=== PATIENT | male | born 1950 | race Caucasian/White ===

== ENCOUNTER 2016-05-07 11:39 | Inpatient (IN) | payer OTHER ==
--- NOTE | ~2016-05-07 | DS ---
Discharge Summary [facility] [address] [facility] [place]. [address] NAME: REMEDIOS XAVIER JR : 52 STATUS : DIS IN PAT#: [id number] AGE: 65 ADM/REG DATE : 05/07/16 MR#: [id number] REPORT SERV DATE: 05/13/16 DICTATED BY: JOAQUIN TELLO DATE: 05/13/16 REPORT STATUS : Draft TRANSCRIBED BY: MODL DATE: 05/13/16 ADMISSION DATE: 05/07/2016 DISCHARGE DATE: 05/13/2016 DIAGNOSES ON ADMISSION: 1. End-stage renal disease, on hospice. 2. Hyperkalemia. 3. Hyponatremia. 4. Bilateral hydronephrosis with a left ureteral stent. 5. Advanced Pick's disease/severe dementia. DIAGNOSES ON DISCHARGE: 1. End-stage renal disease, on hospice. 2. Hyperkalemia and hyponatremia, resolved. 3. Bilateral hydronephrosis, status post left ureteral stent removal per Dr. Palmer. 4. Urinary tract infection, treated. 5. Advanced Pick's disease/dementia. 6. Poor prognosis. 7. The patient to go back to hospice. CONSULTANTS ON THE CASE: Urologist, Dr. Palmer. PROCEDURES DONE: Yesterday, on 05/12/2016, left ureteral stent removal. HISTORY OF PRESENT ILLNESS: For the details of admission, see H and P dictated by Dr. Castro on 05/07/2016. HOSPITAL COURSE: The patient was seen by Dr. Castro until 05/11/2016. When I started to see this patient, he had stable vital signs, but he was not able to follow commands, he was not able to answer questions appropriately because of his severe dementia, although he was alert and awake. The patient has severe end-stage kidney disease and he is not a dialysis candidate, so mechanical engineering director who saw on previous admission recommended the patient to be on hospice, and the patient was on hospice before coming to the hospital. The reason the patient came to the hospital was left ureteral stent removal per Dr. Palmer. Dr. Palmer yesterday removed the patient's stent. He said that his kidney function is still very abnormal indicating end-stage kidney disease and Dr. Palmer also confirmed that this patient has a very poor prognosis and he needs to go back to hospice. As well, he was found to have urinary tract infection which was treated with antibiotics according to sensitivity, and he needs to continue Levaquin for five more days, also, according to sensitivity. The patient needs to go to home with hospice with indwelling Melvin catheter which needs to be changed every four weeks. Dr. Palmer also reported that the patient can see him as needed. Every instruction was given to his friend/caregiver who took the patient home with hospice. Discharge medications were given; Levaquin prescription 750 mg p.o. daily for five days, and also Protonix 40 mg p.o. daily was given to the patient. The rest of the medications per Discharge Summary [address] [address] NAME: REMEDIOS XAVIER JR : 52 STATUS : DIS IN PAT#: [id number] AGE: 65 ADM/REG DATE : 05/07/16 MR#: [id number] REPORT SERV DATE: 05/13/16 DICTATED BY: JOAQUIN TELLO DATE: 05/13/16 REPORT STATUS : Draft TRANSCRIBED BY: RAGHU DATE: 05/13/16 Hospice. I spent 45 minutes on discharge. Everything was discussed with the patient's friend. This is poor prognosis. /RAGHU Joaquin Tello M.D. / [id number] CC: Ama Begum M.D.
--- NOTE | ~2016-05-07 | OP ---
Record Of Operation [facility] [address] [place]. [address] NAME: REMEDIOS XAVIER JR : 52 STATUS : ADM IN [facility]#: [id number] AGE: 65 ADM/REG DATE : 05/07/16 MR#: [id number] REPORT SERV DATE: 05/12/16 DICTATED BY: MILLER BRITTON DATE: 05/12/16 REPORT STATUS : Draft TRANSCRIBED BY: MODL DATE: 05/12/16 DATE OF PROCEDURE: 05/12/2016 PREOPERATIVE DIAGNOSIS: Hydronephrosis. POSTOPERATIVE DIAGNOSIS: Hydronephrosis. OPERATIVE PROCEDURE: Cystoscopy with left ureteral stent removal. ANESTHESIA: General inhalation. SURGEON: Dr. Britton. SPECIMENS: Stent. DRAINS: #18 coude Melvin catheter. IMMEDIATE POSTOP: Satisfactory. COMPLICATIONS: None. DESCRIPTION OF PROCEDURE: The patient was brought in the cysto suite, given inhalational anesthetic by LMA. He was placed in the lithotomy position. Perineum and genitalia were prepped and draped in a sterile fashion. Video cystourethroscopy was performed using #22 cystoscope Foroblique lens. Distal end of the left ureteral stent was identified and grasped with an endoscopic grasping forceps. It was extracted while observing on an on- table fluoroscopy. The stent was removed without difficulty. It was inspected and noted to be complete without fragments missing. At this point, a #18 coude Melvin catheter was placed in the bladder, balloon inflated, hooked to drainage, and syringe irrigated. The patient was then awakened and sent to recovery in stable condition. /RAGHU Miller Britton M.D. / [id number] CC: Lyric Heath M.D.
--- NOTE | ~2016-05-07 | HP ---
History And Physical [place] [id number] [facility] [place]. [address] NAME: REMEDIOS PATEL JR : 52 STATUS : ADM IN PAT#: [id number] AGE: 65 ADM/REG DATE : 05/07/16 MR#: [id number] REPORT SERV DATE: 05/07/16 DICTATED BY: JUANA MERINO DATE: 05/07/16 REPORT STATUS : Draft TRANSCRIBED BY: MODL DATE: 05/07/16 DATE OF ADMISSION: 05/07/2016 [facility] UROLOGIST: Dr. Palmer. HISTORY OF PRESENT ILLNESS: This is a 65-year-old male with advanced Pick's dementia, was recently transferred to hospice last month. During that admission, the patient had end- stage renal disease, advanced Pick's disease, and had a left stent placed for ureteral stones. The plan is to have it removed after three weeks. The patient has been doing well with hospice, eating a little bit every day. But for the last two days, has not been eating and feels like he is gagging. There is no note of any vomiting. No urinary or bowel changes. The patient went to same day surgery today for the scheduled removal of the stent. They did routine blood work preop and found the patient to have multiple electrolyte abnormalities. We are now called to admit the patient and hold off the stent removal until the electrolyte abnormalities are better. There is no note of any fever, chills, or sweats. No further mental status changes. There is no cough or shortness of breath. No apparent pain. REVIEW OF SYSTEMS: The rest of the 14-point review of system is negative except as above. PAST MEDICAL HISTORY: Includes the above. ALLERGIES: HE HAS NO KNOWN DRUG ALLERGIES. MEDICATIONS: Include sodium bicarbonate. FAMILY HISTORY: Alzheimer's dementia. SOCIAL HISTORY: The patient does not smoke, drink, or use recreational drugs. PHYSICAL EXAMINATION: GENERAL: The patient is an emaciated, awake, nonverbal, not in cardiopulmonary distress. VITAL SIGNS: Includes a saturation of 95% on room air, blood pressure 132/67, temperature of 99.6, pulse rate of 82, respiration of 18. NECK: He has supple neck. No JVD or carotid bruits. No lymphadenopathy. Tyrone conjunctivae. Anicteric sclerae. No pharyngeal erythema. LUNGS: Clear lungs. No rales, no wheezes. CARDIOVASCULAR: Regular rate and rhythm. No murmurs. ABDOMEN: Positive bowel sounds. Soft, scaphoid abdomen. Nontender. No masses. EXTREMITIES: Fair pulses. No edema. NEURO: Nonlocalizing. LABORATORY DATA: Reveals a sodium of 124, potassium of 5.8, BUN and creatinine of 192 and History And Physical [facility] [address] [place] [address]. [place]. [address] NAME: REMEDIOS PATEL JR : 52 STATUS : ADM IN [facility]#: [id number] AGE: 65 ADM/REG DATE : 05/07/16 MR#: [id number] REPORT SERV DATE: 05/07/16 DICTATED BY: JUANA MERINO DATE: 05/07/16 REPORT STATUS : Draft TRANSCRIBED BY: RAGHU DATE: 05/07/16 11.8, H and H of 12.6 and 36.7. ASSESSMENT: 1. End-stage renal disease. 2. Hyperkalemia. 3. Hyponatremia. 4. Bilateral hydronephrosis with left ureteral stent. 5. Pick's disease. PLAN: The patient will be admitted to telemetry and started on a bicarb drip. We will give a dose of calcium and give Kayexalate. Monitor the electrolytes and check urinalysis. We discussed the poor prognosis with family and friends and they made the patient continue the DO NOT RESUSCITATE/DO NOT INTUBATE. We will defer Melvin changes and stents to Urology. This has been explained to the patient in front of the friend and CATALINOVimal Manpreet Patel, the patient's younger brother, and they agreed and understood the plan. MIKI/RAGHU Juana Merino M.D. / [id number] CC: Miller Palmer M.D.
[~2016-05-07 11:39] MED LIST: *DENIES; ARICEPT5 PO; ASPIRIN PO; K500 PO; LACT30UDL PO; NO HOME MEDICATIONS; SIN10 PO; SODBICAR10 PO; THERA M PLUS PO
[2016-05-07 13:23] LABS: HEMATOCRIT 36.7 % (40.0-51.0); HEMOGLOBIN 12.6 g/dL (13.6-17.8)
[2016-05-07 13:36] LABS: CHLORIDE, SERUM 94 MMOL/L (96-112)
[2016-05-07 13:40] LABS: GFR AFRICAN AMERICAN 5 ML/MIN (>=60); GFR NON AFRICAN AMERICAN 4 ML/MIN (>=60); GLUCOSE, SERUM 133 MG/DL (60-99); POTASSIUM, SERUM 5.8 MMOL/L (3.5-5.3); SODIUM, SERUM 124 MMOL/L (135-148)
[2016-05-07 13:54] LABS: BUN (BLOOD UREA NITROGEN) 192 MG/DL (6-23); CO2 (CARBON DIOXIDE) 13 MMOL/L (24-34)
[2016-05-07 18:54] LABS: PHOSPHORUS, SERUM 8.6 MG/DL (2.5-4.5)
[2016-05-07 19:03] LABS: ASCORBIC ACID (UR NOT ORDER) NEG (NEG); BILIRUBIN, URINE NEGATIVE (NEG); KETONE, URINE NEGATIVE (NEG); LEUKOCYTE ESTERASE(NOT OR LARGE (NEG)
[2016-05-07 19:05] LABS: WBC (NOT ORDERED) (RFLEX) > 182 (0-5)
[2016-05-08 07:30] LABS: CALCIUM, SERUM 8.2 MG/DL (8.5-10.4); CHLORIDE, SERUM 94 MMOL/L (96-112); CO2 (CARBON DIOXIDE) 21 MMOL/L (24-34); GFR AFRICAN AMERICAN 5 ML/MIN (>=60); GFR NON AFRICAN AMERICAN 5 ML/MIN (>=60); GLUCOSE, SERUM 140 MG/DL (60-99); POTASSIUM, SERUM 4.8 MMOL/L (3.5-5.3); SODIUM, SERUM 130 MMOL/L (135-148)
[2016-05-08 07:31] LABS: BUN (BLOOD UREA NITROGEN) 181 MG/DL (6-23)
[2016-05-08 07:35] LABS: BASOPHILS 0.1 %; BASOPHILS ABSOLUTE 0.01 10/3/uL (0.0-0.16); EOSINOPHILS 0.3 %; EOSINOPHILS ABSOLUTE 0.06 10/3/uL (0.0-0.53); IMMATURE GRANULOCYTES 0.6 %; IMMATURE GRANULOCYTES ABSOLUTE 0.11 10/3/uL (0.0-0.11); LYMPHOCYTES 6.3 %; LYMPHOCYTES ABSOLUTE 1.19 10/3/uL (0.67-4.30); MEAN CORPUS HGB CONC 34.1 g/dL (32.0-36.0); MEAN CORPUSCULAR HEMOGLOB 29.1 pg (26.0-34.0); MEAN PLATELET VOLUME 9.7 fL (9.2-13.0); MONOCYTES 1.6 %; MONOCYTES ABSOLUTE 0.31 10/3/uL (0.21-1.20); NEUTROPHILS 91.1 %; NEUTROPHILS ABSOLUTE 17.36 10/3/uL (2.02-8.40); RBC DISTRIBUTION WIDTH 13.8 % (12.0-16.0); RED CELL COUNT 3.23 10/6/uL (4.7-6.1)
[2016-05-08 07:49] LABS: HEMATOCRIT 27.6 % (40.0-51.0); HEMOGLOBIN 9.4 g/dL (13.6-17.8); MANUAL DIFF NO %; MEAN CORPUSCULAR VOLUME 85.4 fL (80-100); PLATELET COUNT 358 10/3/uL (150-400)
[2016-05-09 06:22] LABS: BASOPHILS 0.1 %; BASOPHILS ABSOLUTE 0.01 10/3/uL (0.0-0.16); EOSINOPHILS 0.6 %; EOSINOPHILS ABSOLUTE 0.09 10/3/uL (0.0-0.53); HEMATOCRIT 28.6 % (40.0-51.0); HEMOGLOBIN 9.8 g/dL (13.6-17.8); IMMATURE GRANULOCYTES 0.4 %; IMMATURE GRANULOCYTES ABSOLUTE 0.06 10/3/uL (0.0-0.11); LYMPHOCYTES ABSOLUTE 1.28 10/3/uL (0.67-4.30); MANUAL DIFF NO %; MEAN CORPUS HGB CONC 34.3 g/dL (32.0-36.0); MEAN CORPUSCULAR HEMOGLOB 30.3 pg (26.0-34.0); MEAN CORPUSCULAR VOLUME 88.5 fL (80-100); MEAN PLATELET VOLUME 9.7 fL (9.2-13.0); MONOCYTES 4.7 %; MONOCYTES ABSOLUTE 0.76 10/3/uL (0.21-1.20); NEUTROPHILS 86.2 %; NEUTROPHILS ABSOLUTE 13.84 10/3/uL (2.02-8.40); PLATELET COUNT 279 10/3/uL (150-400); RBC DISTRIBUTION WIDTH 13.6 % (12.0-16.0); RED CELL COUNT 3.23 10/6/uL (4.7-6.1)
[2016-05-09 06:40] LABS: CHLORIDE, SERUM 88 MMOL/L (96-112); GFR AFRICAN AMERICAN 6 ML/MIN (>=60); GFR NON AFRICAN AMERICAN 5 ML/MIN (>=60); GLUCOSE, SERUM 136 MG/DL (60-99); SODIUM, SERUM 131 MMOL/L (135-148)
[2016-05-09 06:41] LABS: BUN (BLOOD UREA NITROGEN) 160 MG/DL (6-23); CO2 (CARBON DIOXIDE) 27 MMOL/L (24-34); CREATININE 9.17 MG/DL (0.70-1.30)
[2016-05-10 07:06] LABS: BUN (BLOOD UREA NITROGEN) 129 MG/DL (6-23); CALCIUM, SERUM 7.8 MG/DL (8.5-10.4); CHLORIDE, SERUM 87 MMOL/L (96-112); CO2 (CARBON DIOXIDE) 36 MMOL/L (24-34); CREATININE 7.99 MG/DL (0.70-1.30); GFR AFRICAN AMERICAN 7 ML/MIN (>=60); GFR NON AFRICAN AMERICAN 6 ML/MIN (>=60); GLUCOSE, SERUM 143 MG/DL (60-99); POTASSIUM, SERUM 3.4 MMOL/L (3.5-5.3); SODIUM, SERUM 135 MMOL/L (135-148)
[2016-05-10 11:29] LABS: BASOPHILS 0.1 %; BASOPHILS ABSOLUTE 0.01 10/3/uL (0.0-0.16); EOSINOPHILS 2.1 %; EOSINOPHILS ABSOLUTE 0.24 10/3/uL (0.0-0.53); HEMATOCRIT 27.7 % (40.0-51.0); HEMOGLOBIN 9.2 g/dL (13.6-17.8); IMMATURE GRANULOCYTES 0.3 %; IMMATURE GRANULOCYTES ABSOLUTE 0.03 10/3/uL (0.0-0.11); LYMPHOCYTES 7.8 %; MEAN CORPUS HGB CONC 33.2 g/dL (32.0-36.0); MEAN CORPUSCULAR HEMOGLOB 30.2 pg (26.0-34.0); MEAN CORPUSCULAR VOLUME 90.8 fL (80-100); MEAN PLATELET VOLUME 9.3 fL (9.2-13.0); MONOCYTES 6.4 %; MONOCYTES ABSOLUTE 0.74 10/3/uL (0.21-1.20); NEUTROPHILS 83.3 %; NEUTROPHILS ABSOLUTE 9.66 10/3/uL (2.02-8.40); PLATELET COUNT 249 10/3/uL (150-400); RBC DISTRIBUTION WIDTH 13.6 % (12.0-16.0); RED CELL COUNT 3.05 10/6/uL (4.7-6.1); WHITE BLOOD CELLS 11.6 10/3/uL (4.5-10.5)
[2016-05-10 11:31] LABS: MANUAL DIFF NO %
[2016-05-11 06:26] LABS: BASOPHILS 0.1 %; BASOPHILS ABSOLUTE 0.01 10/3/uL (0.0-0.16); EOSINOPHILS 2.4 %; EOSINOPHILS ABSOLUTE 0.28 10/3/uL (0.0-0.53); HEMATOCRIT 27.6 % (40.0-51.0); HEMOGLOBIN 9.2 g/dL (13.6-17.8); IMMATURE GRANULOCYTES 0.3 %; IMMATURE GRANULOCYTES ABSOLUTE 0.04 10/3/uL (0.0-0.11); LYMPHOCYTES 11.5 %; LYMPHOCYTES ABSOLUTE 1.36 10/3/uL (0.67-4.30); MEAN CORPUS HGB CONC 33.3 g/dL (32.0-36.0); MEAN CORPUSCULAR HEMOGLOB 30.7 pg (26.0-34.0); MEAN PLATELET VOLUME 9.3 fL (9.2-13.0); MONOCYTES 4.9 %; MONOCYTES ABSOLUTE 0.58 10/3/uL (0.21-1.20); NEUTROPHILS 80.8 %; NEUTROPHILS ABSOLUTE 9.51 10/3/uL (2.02-8.40); PLATELET COUNT 264 10/3/uL (150-400); RBC DISTRIBUTION WIDTH 13.6 % (12.0-16.0); WHITE BLOOD CELLS 11.8 10/3/uL (4.5-10.5)
[2016-05-11 06:27] LABS: MANUAL DIFF NO %
[2016-05-11 06:40] LABS: CALCIUM, SERUM 7.7 MG/DL (8.5-10.4); CHLORIDE, SERUM 89 MMOL/L (96-112); CO2 (CARBON DIOXIDE) 38 MMOL/L (24-34); GFR AFRICAN AMERICAN 8 ML/MIN (>=60); GFR NON AFRICAN AMERICAN 7 ML/MIN (>=60); GLUCOSE, SERUM 136 MG/DL (60-99); SODIUM, SERUM 136 MMOL/L (135-148)
[2016-05-11 06:42] LABS: BUN (BLOOD UREA NITROGEN) 105 MG/DL (6-23); CREATININE 7.26 MG/DL (0.70-1.30)
[2016-05-12 12:46] LABS: BASOPHILS 0.1 %; BASOPHILS ABSOLUTE 0.02 10/3/uL (0.0-0.16); EOSINOPHILS 1.7 %; EOSINOPHILS ABSOLUTE 0.26 10/3/uL (0.0-0.53); HEMATOCRIT 29.2 % (40.0-51.0); HEMOGLOBIN 9.6 g/dL (13.6-17.8); IMMATURE GRANULOCYTES 0.3 %; IMMATURE GRANULOCYTES ABSOLUTE 0.05 10/3/uL (0.0-0.11); LYMPHOCYTES 3.1 %; LYMPHOCYTES ABSOLUTE 0.47 10/3/uL (0.67-4.30); MANUAL DIFF NO %; MEAN CORPUS HGB CONC 32.9 g/dL (32.0-36.0); MEAN CORPUSCULAR HEMOGLOB 30.9 pg (26.0-34.0); MEAN CORPUSCULAR VOLUME 93.9 fL (80-100); MEAN PLATELET VOLUME 9.2 fL (9.2-13.0); MONOCYTES 5.2 %; MONOCYTES ABSOLUTE 0.79 10/3/uL (0.21-1.20); NEUTROPHILS 89.6 %; NEUTROPHILS ABSOLUTE 13.53 10/3/uL (2.02-8.40); PLATELET COUNT 252 10/3/uL (150-400); RBC DISTRIBUTION WIDTH 13.7 % (12.0-16.0); RED CELL COUNT 3.11 10/6/uL (4.7-6.1); WHITE BLOOD CELLS 15.1 10/3/uL (4.5-10.5)
[2016-05-12 12:58] LABS: CALCIUM, SERUM 7.7 MG/DL (8.5-10.4); CHLORIDE, SERUM 88 MMOL/L (96-112); CO2 (CARBON DIOXIDE) 39 MMOL/L (24-34); GFR AFRICAN AMERICAN 9 ML/MIN (>=60); GFR NON AFRICAN AMERICAN 8 ML/MIN (>=60); GLUCOSE, SERUM 155 MG/DL (60-99); POTASSIUM, SERUM 3.8 MMOL/L (3.5-5.3); SODIUM, SERUM 136 MMOL/L (135-148)
[2016-05-12 13:00] LABS: BUN (BLOOD UREA NITROGEN) 83 MG/DL (6-23); CREATININE 6.56 MG/DL (0.70-1.30)
[2016-05-13] MEDS ORDERED: LEVAQUIN750 MG PO (11:15)
[2016-05-13] MEDS ORDERED: PROTONIX PO (11:16)
== END 2016-05-13 13:00 | disposition hospice, home (50) | DRG 698 ==
LOC: SDC 11:39 → 5SO 16:25
PROVIDERS: Hospitalist; Internal Medicine; Urology
PROC: 0TP98DZ Removal of Intraluminal Device from Ureter, Via Natural or Artificial Opening Endoscopic (ICD-10-PCS; principal; 2016-05-12 07:45)
DX: T83.518A Infection and inflammatory reaction due to other urinary catheter, initial encounter (principal); N18.6 End stage renal disease; G31.01 Pick's disease; F02.80 Dementia in other diseases classified elsewhere, unspecified severity, without behavioral disturbance, psychotic disturbance, mood disturbance, and anxiety; N13.30 Unspecified hydronephrosis; E87.1 Hypo-osmolality and hyponatremia; N39.0 Urinary tract infection, site not specified; E87.5 Hyperkalemia; Z66 Do not resuscitate; Z28.21 Immunization not carried out because of patient refusal; Z51.5 Encounter for palliative care; B96.1 Klebsiella pneumoniae [K. pneumoniae] as the cause of diseases classified elsewhere
CPT/HCPCS: 74000; 80048; 81001; 84100; 85014; 85018; 85025; 87077; 87086; 87186; A9270-GY; J0610; J0690; J2250; J2370; J2405; J3010